=== PATIENT | female | born 1950 | race Caucasian/White ===

== ENCOUNTER → 2020-02-23 10:35 | Outpatient (CLI) | payer OTHER, SELFPAY ==
[2020-02-23 11:24] LABS: Add Manual Diff / Slide Review NO; Basophils Absolute Auto 100 /uL (0-100); Basophils Percent Auto 1.3 % (0-2); Eosinophils Absolute Auto 100 /uL (0-450); Eosinophils Percent Auto 1.7 % (2-4); Hematocrit 43.2 % (36-46); Hemoglobin 14.7 g/dL (12.0-16.0); Lymphocytes Absolute Auto 1000 /uL (1100-4500); Lymphocytes Percent Auto 22.5 % (25-40); Mean Corpuscular HGB Conc 34.1 % (30-36); Mean Corpuscular Hemoglobin 30.6 PG (26-34); Mean Corpuscular Volume 89.6 fL (80-100); Monocytes Absolute Auto 300 /uL (0-900); Monocytes Percent Auto 6.8 % (3-14); Neutrophils Absolute Auto 2900 /uL (1500-7000); Neutrophils Percent Auto 67.7 % (50-75); Platelet Count 179 X10^3/uL (150-400); Red Blood Cell Count 4.82 X10^6/uL (4.0-5.2); Red Cell Distribution Width 14.1 % (11.6-14.8); White Blood Cell Count 4.2 X10^3/uL (4.5-11.0)
[2020-02-23 12:38] LABS: Alanine Aminotransferase 61 IU/L (<35); Albumin 4.2 g/dL (3.5-5.0); Albumin Globulin Ratio 1.4 (1.0-2.8); Alkaline Phosphatase 116 U/L (38-126); Aspartate Aminotransferase 68 IU/L (14-36); BUN Creatinine Ratio 17.9 (6-22); Blood Urea Nitrogen 17 mg/dL (7-17); Calcium 9.8 mg/dL (8.4-10.2); Carbon Dioxide 25 mmol/L (22-32); Chloride 105 mmol/L (98-107); Estimated Glomerular Filt Rate 58.3 mL/min (>60); Globulin 2.9 g/dL (1.7-4.1); Glucose 108 mg/dL (80-110); HEMOLYSIS < 15 (0-50); Potassium 3.8 mmol/L (3.4-5.1); Sodium 137 mmol/L (137-145); Total Protein 7.1 g/dL (6.3-8.2)
== END ==
PROVIDERS: Referring Provider Internal Medicine Medical Oncology; Visit Provider Internal Medicine Medical Oncology
DX: C22.9 Malignant neoplasm of liver, not specified as primary or secondary (principal)
CPT/HCPCS: 36415; 80053; 82105; 85025

== ENCOUNTER 2020-03-31 16:39 | Emergency (ER) | payer OTHER, SELFPAY ==
[2020-03-31] VITALS (12 sets, daily range): BP systolic 123–151; BP diastolic 68–90; PULSE 53–71; RESP 15–22; TEMP 36.7; O2SAT 96–100
[2020-03-31 17:18] LABS: Add Manual Diff / Slide Review NO; Basophils Absolute Auto 0 /uL (0-100); Basophils Percent Auto 0.6 % (0-2); Eosinophils Absolute Auto 0 /uL (0-450); Eosinophils Percent Auto 0.6 % (2-4); Hematocrit 47.8 % (36-46); Hemoglobin 16.5 g/dL (12.0-16.0); Lymphocytes Absolute Auto 1000 /uL (1100-4500); Lymphocytes Percent Auto 13.3 % (25-40); Mean Corpuscular HGB Conc 34.4 % (30-36); Mean Corpuscular Hemoglobin 30.4 PG (26-34); Mean Corpuscular Volume 88.3 fL (80-100); Monocytes Absolute Auto 400 /uL (0-900); Monocytes Percent Auto 4.9 % (3-14); Neutrophils Absolute Auto 6200 /uL (1500-7000); Neutrophils Percent Auto 80.6 % (50-75); Platelet Count 186 X10^3/uL (150-400); Red Blood Cell Count 5.42 X10^6/uL (4.0-5.2); Red Cell Distribution Width 14.2 % (11.6-14.8); White Blood Cell Count 7.7 X10^3/uL (4.5-11.0)
[2020-03-31 17:20] LABS: INR 2.2 (0.9-1.3); Prothrombin Time 25.1 SECONDS (10.1-12.7)
[2020-03-31 17:23] LABS: PTT Partial Thromboplastin Tim 43 SECONDS (26.4-36.2)
[2020-03-31 17:25] LABS: Alanine Aminotransferase 60 IU/L (<35); Albumin 4.8 g/dL (3.5-5.0); Albumin Globulin Ratio 1.3 (1.0-2.8); Alkaline Phosphatase 153 U/L (38-126); Aspartate Aminotransferase 76 IU/L (14-36); Bilirubin Total 1.5 mg/dL (0.2-1.3); Blood Urea Nitrogen 19 mg/dL (7-17); Calcium 10.1 mg/dL (8.4-10.2); Carbon Dioxide 24 mmol/L (22-32); Chloride 102 mmol/L (98-107); Globulin 3.6 g/dL (1.7-4.1); Glucose 95 mg/dL (80-110); HEMOLYSIS < 15 (0-50); Lipase 71 U/L (23-300); Potassium 3.7 mmol/L (3.4-5.1); Sodium 136 mmol/L (137-145); Total Protein 8.4 g/dL (6.3-8.2)
[2020-03-31 17:30] LABS: COVID19 -Nasal RAPID Negative (Negative)
--- NOTE | 2020-03-31 17:38 | DI.RAD.S_ITS ---
PROCEDURE: XR CHEST 1V INDICATIONS: sob, vomiting TECHNIQUE: One view of the chest was acquired. COMPARISON: None. FINDINGS: Overlying EKG wires. Surgical changes and devices: Right chest wall port catheter is noted with the tip overlying the expected location of the superior cavoatrial junction. Lungs and pleura: Lungs are clear. No pleural effusions or pneumothorax. Very small calcification overlying the right mid lung likely representing granuloma. Mediastinum: Mediastinal contours appear normal. Heart size is normal. Bones and chest wall: No suspicious bony lesions. Age appropriate degenerative changes. Overlying soft tissues appear unremarkable. IMPRESSION: No evidence of an acute cardiopulmonary abnormality. Dictated by: Vinny Spivey D.O. on 03/31/2020 at 17:03 Approved by: Vinny Spivey D.O. on 03/31/2020 at 17:04
[2020-03-31 17:53] LABS: Creatine Kinase 42 U/L (30-135)
[2020-03-31 18:06] LABS: NT-proBNP (BNP-Adult 18+) 67 pg/mL (<125); Troponin I < 0.012 ng/mL (0.01-0.034)
--- NOTE | 2020-03-31 18:42 | ED.NAVMDI ---
HPI - Nausea/Vomiting/Diarrhea General Chief complaint: Nausea/Vomiting/Diarrhea Stated complaint: Just Been Sick, Body Aches, Throwing Up, SOB Time Seen by Provider: 03/31/20 17:37 Source: patient Mode of arrival: Ambulatory History of Present Illness HPI Narrative: Patient is a 69-year-old woman with primary liver cancer followed by Dr. Bridget Squires with the [facility] [place]. She currently is on an oral chemotherapeutic agent with a goal of stability and currently is enrolled in a T-cell treatment trial and anticipation of infusing T-cells at the end of April. She comes into the emergency room complaining of chills for the last 24 hours, fevers, mild dyspnea and generally not feeling well. She states this is exactly the symptoms that she had when her initial cancer was diagnosed. She notes that she has very little appetite, vomiting, diarrhea (which is alleviated with Imodium) and has lost almost 8 lb in the last week. She describes no cough no specific abdominal pain but does have some generalized tenderness in the right upper quadrant, no rashes, low-grade headaches and mild orthostasis type symptoms after the recent increase in vomiting and diarrhea. She has noticed no jaundice and is complaining of no overall puritis. No lower extremity edema, chest pain or palpitations or orthopnea. Review of Systems Review of Systems ROS Unobtainable: All systems reviewed & are unremarkable except as noted in HPI and below Patient History Medical History (Updated 03/31/20 @ 22:14 by Peggy Jackson MD) Primary liver malignancy Surgical History (Updated 03/31/20 @ 20:01 by Peggy Jacksno MD) History of cholecystectomy Exam Narrative Exam Narrative: General: Pale and frail appearing but in no acute distress. Able to give a complete and coherent history. Well-nourished well-developed HEENT: Moist mucous membranes, normal sclera with reactive pupils, Neck: No JVD, supple Respiratory: Lungs are clear to auscultation, no wheezing no rales no rhonchi. Full and symmetrical air movement Cardiac: Regular rate and rhythm no murmurs no bruits Abdomen: Soft, mild RUQ tenderness with mild hepatomegaly, good bowel tones, no flank pain Skin: pale, Warm and dry, no rashes Neurologic: Grossly neurologically intact with no obvious asymmetries or abnormalities Extremities: No trauma, well perfused Psych: Cooperative, appropriate insight and affect Initial Vital Signs Initial Vital Signs: Vital Signs Temperature 98.1 F 03/31/20 16:48 Pulse Rate 69 03/31/20 16:48 Respiratory Rate 22 03/31/20 16:48 Blood Pressure 137/90 03/31/20 16:48 Pulse Oximetry 97 03/31/20 16:48 Course Orders Ordered: ED Orders 03/31/20 16:49 EKG-12 Lead Stat 03/31/20 16:50 COVID19 Stat 03/31/20 17:05 Complete Blood Count AUTO DIFF Stat Comprehensive Metabolic Panel Stat Lipase Stat NT-proBNP (BNP-Adult 18+) Stat Partial Thromboplastin Time Stat Prothrombin Time INR Stat Troponin & CK Cardiac Panel Stat 03/31/20 17:38 XR chest 1V Stat 03/31/20 21:11 Urine Culture Stat Urine Microscopic Stat 03/31/20 22:05 GI Panel (Film Array) Stat Discontinued Medications Sodium Chloride (Normal Saline 0.9%) 1,000 mls @ 1,000 mls/hr IV BOLUS ONE Stop: 03/31/20 19:43 Last Infusion: 03/31/20 20:43 Dose: 0 mls/hr Documented by: Admin: 03/31/20 18:52 Dose: 1,000 mls/hr Documented by: LUCIE Sodium Chloride (Normal Saline 0.9%) 1,000 mls @ 1,000 mls/hr IV BOLUS ONE Stop: 03/31/20 21:23 Last Infusion: 03/31/20 21:42 Dose: 0 mls/hr Documented by: Admin: 03/31/20 20:35 Dose: 1,000 mls/hr Documented by: CIRA Loperamide HCl (Loperamide 2 Mg Capsule) 4 mg PO NOW ONE Stop: 03/31/20 21:44 Last Admin: 03/31/20 21:47 Dose: 4 mg Documented by: OMARI Vital Signs Vital signs: Vital Signs - 8 hr 03/31/20 16:48 03/31/20 17:16 03/31/20 17:30 Temperature 98.1 F Pulse Rate 69 57 L 54 L Respiratory Rate 22 15 Blood Pressure 137/90 140/78 Pulse Oximetry 97 97 96 03/31/20 18:00 03/31/20 18:30 03/31/20 19:00 Temperature Pulse Rate 54 L 58 L 58 L Respiratory Rate 22 18 19 Blood Pressure 144/76 H 123/73 140/78 Pulse Oximetry 97 97 97 03/31/20 19:30 03/31/20 20:00 03/31/20 20:30 Temperature Pulse Rate 53 L 53 L 54 L Respiratory Rate 20 18 22 Blood Pressure 147/76 H 132/75 140/76 Pulse Oximetry 98 98 99 03/31/20 21:12 Temperature Pulse Rate 56 L Respiratory Rate 16 Blood Pressure 148/69 H Pulse Oximetry 96 MDM - Nausea/Vomiting/Diarrhea Medical Records Attestation: I reviewed the patient's medical records. Lab Data Attestation: I reviewed the patient's lab results. Result diagrams: 03/31/20 17:05 03/31/20 17:05 Labs: Lab Results 03/31/20 03/31/20 03/31/20 Range/Units 16:50 17:05 17:05 WBC 7.7 (4.5-11.0) X10^3/uL RBC 5.42 H (4.0-5.2) X10^6/uL Hgb 16.5 H (12.0-16.0) g/dL Hct 47.8 H (36-46) % MCV 88.3 (80-100) fL MCH 30.4 (26-34) PG MCHC 34.4 (30-36) % RDW 14.2 (11.6-14.8) % Plt Count 186 (150-400) X10^3/uL Neut % (Auto) 80.6 H (50-75) % Lymph % (Auto) 13.3 L (25-40) % [place] % (Auto) 4.9 (3-14) % Eos % (Auto) 0.6 L (2-4) % Baso % (Auto) 0.6 (0-2) % Neut # (Auto) 6200 (3780-5270) /uL Lymph # (Auto) 1000 L (8384-3876) /uL [place] # (Auto) 400 (0-900) /uL Eos # (Auto) 0 (0-450) /uL Baso # (Auto) 0 (0-100) /uL PT 25.1 H (10.1-12.7) SECONDS INR 2.2 H (0.9-1.3) APTT 43 H (26.4-36.2) SECONDS Sodium (137-145) mmol/L Potassium (3.4-5.1) mmol/L Chloride (98-107) mmol/L Carbon Dioxide (22-32) mmol/L BUN (7-17) mg/dL Creatinine (0.52-1.04) mg/dL Estimated GFR (>60) mL/min BUN/Creatinine Ratio (6-22) Glucose (80-110) mg/dL Calcium (8.4-10.2) mg/dL Total Bilirubin (0.2-1.3) mg/dL AST (14-36) IU/L ALT (<35) IU/L Alkaline Phosphatase (38-126) U/L Total Creatine Kinase (30-135) U/L CK-MB (CK-2) CK-MB (CK-2) Rel Index Troponin I (0.01-0.034) ng/mL NT-Pro-B Natriuret Pep (<125) pg/mL Total Protein (6.3-8.2) g/dL Albumin (3.5-5.0) g/dL Globulin (1.7-4.1) g/dL Albumin/Globulin Ratio (1.0-2.8) Lipase (23-300) U/L Urine RBC (0-5/HPF) Urine WBC (0-5/HPF) Ur Squamous Epith Cells (0-5/HPF) Urine Bacteria (None) Hyaline Casts (None) Urine Mucus (Negative) Ur Culture Indicated? SARS-CoV-2 (PCR) Negative (Negative) 03/31/20 03/31/20 03/31/20 Range/Units 17:05 17:05 21:11 WBC (4.5-11.0) X10^3/uL RBC (4.0-5.2) X10^6/uL Hgb (12.0-16.0) g/dL Hct (36-46) % MCV (80-100) fL MCH (26-34) PG MCHC (30-36) % RDW (11.6-14.8) % Plt Count (150-400) X10^3/uL Neut % (Auto) (50-75) % Lymph % (Auto) (25-40) % [place] % (Auto) (3-14) % Eos % (Auto) (2-4) % Baso % (Auto) (0-2) % Neut # (Auto) (5985-1391) /uL Lymph # (Auto) (2015-5642) /uL [place] # (Auto) (0-900) /uL Eos # (Auto) (0-450) /uL Baso # (Auto) (0-100) /uL PT (10.1-12.7) SECONDS INR (0.9-1.3) APTT (26.4-36.2) SECONDS Sodium 136 L (137-145) mmol/L Potassium 3.7 (3.4-5.1) mmol/L Chloride 102 (98-107) mmol/L Carbon Dioxide 24 (22-32) mmol/L BUN 19 H (7-17) mg/dL Creatinine 1.19 H (0.52-1.04) mg/dL Estimated GFR 45.0 L (>60) mL/min BUN/Creatinine Ratio 16.0 (6-22) Glucose 95 (80-110) mg/dL Calcium 10.1 (8.4-10.2) mg/dL Total Bilirubin 1.5 H (0.2-1.3) mg/dL AST 76 H (14-36) IU/L ALT 60 H (<35) IU/L Alkaline Phosphatase 153 H (38-126) U/L Total Creatine Kinase 42 (30-135) U/L CK-MB (CK-2) TNP CK-MB (CK-2) Rel Index TNP Troponin I < 0.012 (0.01-0.034) ng/mL NT-Pro-B Natriuret Pep 67 (<125) pg/mL Total Protein 8.4 H (6.3-8.2) g/dL Albumin 4.8 (3.5-5.0) g/dL Globulin 3.6 (1.7-4.1) g/dL Albumin/Globulin Ratio 1.3 (1.0-2.8) Lipase 71 (23-300) U/L Urine RBC 0-1/hpf (0-5/HPF) Urine WBC 1-5/hpf (0-5/HPF) Ur Squamous Epith Cells 1-5 /hpf (0-5/HPF) Urine Bacteria Many (>30) H (None) Hyaline Casts 1-5/lpf (None) Urine Mucus 1+ H (Negative) Ur Culture Indicated? Specimen cultured SARS-CoV-2 (PCR) (Negative) Urine Dip Bedside Urine Glucose Negative Bedside Urine Bilirubin - Negative Bedside Urine Ketone +/- 5 Urine Specific [place] 1.025 Bedside Urine Occult Blood +/- Bedside Urine pH 6 Bedside Urine Protein - Negative Bedside Urine Urobilinogen - Negative Bedside Urine Nitrite - Negative Bedside Urine Leukocytes + 70 Esterase Imaging Data Chest x-ray: Radiologist's Impression: FINDINGS: Overlying EKG wires. Surgical changes and devices: Right chest wall port catheter is noted with the tip overlying the expected location of the superior cavoatrial junction. Lungs and pleura: Lungs are clear. No pleural effusions or pneumothorax. Very small calcification overlying the right mid lung likely representing granuloma. Mediastinum: Mediastinal contours appear normal. Heart size is normal. Bones and chest wall: No suspicious bony lesions. Age appropriate degenerative changes. Overlying soft tissues appear unremarkable. IMPRESSION: No evidence of an acute cardiopulmonary abnormality. Dictated by: Vinny Spivey D.O. on 03/31/2020 at 17:03 ECG Data Attestation: I personally reviewed and interpreted this ECG as follows: Interpretation: Sinus rhythm at a rate of 56 Normal intervals, leftward axis nonspecific ST T wave changes without acute ischemia No immediate comparison is available MDM Narrative Medical decision making narrative: Case is reviewed with Dr. Casillas, position covering for Dr. Squires with [facility]. Review findings and concerns. She did look at the results of the CT scan from March 28. There is a slight increase in peritoneal disease in the right paracolic gutter but many of the other liver lesions actually looks likely continue to decrease from scans compared back to July. Given the absence of obvious infection or sepsis and mild dehydration recommendation was to treat the dehydration make sure that she was able to tolerate orals and anticipate discharge home with known follow-up already scheduled with her primary oncologist. We briefly reviewed the slight increase to total bilirubin/AST/ALT/alkaline phosphatase and in light of imaging done 3 days ago it was not felt that additional imaging was required at this time. She has had her gallbladder removed. There is no evidence of ascending cholangitis or pancreatitis. 10pm feeling slightly better after 2 L of fluid and now needing to void. Continuing to have rather prolific diarrhea. She is given 4 mg of Imodium. Stool GI panel is sent. I suspect that the diarrhea is more related to her chemotherapy medicine rather than infectious etiology but certainly and easy thing to confirm. Discussed home verses observation admission with patient and her daughter. At this point she feels that the diarrhea can be controlled, she is able to eat and she would much prefer to go home. She will contact her oncologist tomorrow and has not taken her oncology medicine this evening. Discharge Plan Departure Patient Disposition: Home Clinical Impression: Primary liver malignancy, Dehydration, Vomiting and diarrhea Instructions: DI for Dehydration -- Adult Activity Restrictions/Additional Instructions: Thank you for coming in today You received 2 L of IV fluid. You were slightly dehydrated but there is no evidence of acute infection. After looking through all of the side effects of your cancer medication, it likely is the source of the severe diarrhea you are currently experiencing. Please continue using the Zofran you have at home if you have recurrent nausea. It is okay to use Imodium to help control the diarrhea. Please do not take the cancer medication this evening and you contact your oncologist tomorrow to see what she recommends for further dosing. If there are any abnormalities that come back on the stool study that was sent, we will contact you and help with appropriate treatment. I wish you the best Referrals: Gabbi Azevedo PA-C [Primary Care Provider] -
[2020-03-31] MEDS: SODIUM CHLORIDE 0.9% 1,000 ML 1000 ML IV ×2 (18:52→20:35)
[2020-03-31 21:28] LABS: Bacteria Urine Many (>30); Hyaline Casts Urine 1-5/LPF; RBC Urine 0-1/HPF (0-5/HPF); Squamous Epithelial Cell Urine 1-5 /HPF (0-5/HPF); WBC Urine 1-5/HPF (0-5/HPF)
[2020-03-31 21:30] LABS: Culture Indicated Urine Specimen Cultured; Mucus Urine 1+ (Negative)
[2020-03-31] MEDS: LOPERAMIDE 2 MG CAPSULE 4 MG PO (21:47)
[2020-03-31 23:50] LABS: Adenovirus F 40/41 Not Detected (Not Detect); Astrovirus Not Detected (Not Detect); Campylobacter Not Detected (Not Detect); Clostridium difficile toxin AB Not Detected (Not Detect); Cryptosporidium Not Detected (Not Detect); Cyclospora cayetanensis Not Detected (Not Detect); Entamoeba histolytica Not Detected (Not Detect); Enteroaggregative E.coli Not Detected (Not Detect); Enteropathogenic E.coli Not Detected (Not Detect); Enterotoxigenic E.coli It/st Not Detected (Not Detect); Giardia lamblia Not Detected (Not Detect); Norovirus GI/GII Not Detected (Not Detect); Plesiomonsa shigelloides Not Detected (Not Detect); Rotavirus A Not Detected (Not Detect); Salmonella Not Detected (Not Detect); Sapovirus Not Detected (Not Detect); Shiga-like toxin-prod E.coli Not Detected (Not Detect); Shigella/Enteroinvasive E.coli Not Detected (Not Detect); Vibrio Not Detected (Not Detect); Vibrio cholerae Not Detected (Not Detect); Yersinia enterocolitica Not Detected (Not Detect)
== END 2020-03-31 22:26 | disposition home or self-care (01) ==
PROVIDERS: Emergency Medicine; Emergency Provider Emergency Medicine; PCP Physician Assistant Medical
DX: C22.8 Malignant neoplasm of liver, primary, unspecified as to type (principal); E86.0 Dehydration; R11.0 Nausea; R19.7 Diarrhea, unspecified; R10.9 Unspecified abdominal pain; R06.00 Dyspnea, unspecified; Z20.822 Contact with and (suspected) exposure to COVID-19
CPT/HCPCS: 36415; 71045; 80053; 81003; 81015; 82550; 83690; 83880; 84484; 85025; 85610; 85730; 87077; 87086; 87186; 87507; 87635; 93005; 96360; 96361; 99281; 99284; C9803; J1642

== ENCOUNTER 2020-05-02 20:30 | Emergency (ER) | payer OTHER, SELFPAY ==
[2020-05-02] VITALS (9 sets, daily range): BP systolic 98–137; BP diastolic 55–66; PULSE 73–749; RESP 21–26; TEMP 37.6; O2SAT 96–98; BMI 24.1
[2020-05-02] MEDS: SODIUM CHLORIDE 0.9% 1,000 ML 125 ML IV (20:52)
[2020-05-02 21:13] LABS: Add Manual Diff / Slide Review NO; Basophils Absolute Auto 0 /uL (0-100); Basophils Percent Auto 0.5 % (0-2); Eosinophils Absolute Auto 0 /uL (0-450); Eosinophils Percent Auto 0.1 % (2-4); Hematocrit 31.2 % (36-46); Hemoglobin 10.3 g/dL (12.0-16.0); Lymphocytes Absolute Auto 800 /uL (1100-4500); Lymphocytes Percent Auto 8.2 % (25-40); Mean Corpuscular HGB Conc 33.2 % (30-36); Mean Corpuscular Hemoglobin 30.4 PG (26-34); Mean Corpuscular Volume 91.5 fL (80-100); Monocytes Absolute Auto 1000 /uL (0-900); Monocytes Percent Auto 10.5 % (3-14); Neutrophils Absolute Auto 7700 /uL (1500-7000); Neutrophils Percent Auto 80.7 % (50-75); Platelet Count 206 X10^3/uL (150-400); Red Blood Cell Count 3.41 X10^6/uL (4.0-5.2); Red Cell Distribution Width 13.6 % (11.6-14.8); White Blood Cell Count 9.5 X10^3/uL (4.5-11.0)
[2020-05-02 21:18] LABS: INR 1.7 (0.9-1.3)
[2020-05-02 21:23] LABS: Alanine Aminotransferase 170 IU/L (<35); Albumin 3.4 g/dL (3.5-5.0); Albumin Globulin Ratio 1.1 (1.0-2.8); Alkaline Phosphatase 274 U/L (38-126); Aspartate Aminotransferase 251 IU/L (14-36); BUN Creatinine Ratio 14.6 (6-22); Bilirubin Total 0.9 mg/dL (0.2-1.3); Blood Urea Nitrogen 19 mg/dL (7-17); Calcium 9.4 mg/dL (8.4-10.2); Carbon Dioxide 25 mmol/L (22-32); Chloride 100 mmol/L (98-107); Estimated Glomerular Filt Rate 40.6 mL/min (>60); Globulin 3.1 g/dL (1.7-4.1); Glucose 124 mg/dL (80-110); HEMOLYSIS < 15 (0-50); Lactate (Lactic Acid) 0.8 mmol/L (0.7-2.1); Lipase 70 U/L (23-300); Magnesium 1.7 mg/dL (1.6-2.3); Potassium 3.7 mmol/L (3.4-5.1); Sodium 130 mmol/L (137-145); Total Protein 6.5 g/dL (6.3-8.2)
[2020-05-02] MEDS: SODIUM CHLORIDE 0.9% 1,000 ML 1000 ML IV (21:46)
--- NOTE | 2020-05-02 21:48 | DI.RAD.S_ITS ---
PROCEDURE: XR CHEST 2V INDICATIONS: fever TECHNIQUE: 2 views of the chest were acquired. COMPARISON: [facility], , XR CHEST 1V, 03/31/2020, 17:49. FINDINGS: Surgical changes and devices: Right chest port with the tip projecting in the upper SVC. Lungs and pleura: Lungs are clear. No pleural effusions or pneumothorax. Mediastinum: Mediastinal contours are normal. Heart size is normal. Bones and chest wall: No suspicious bony abnormalities. Soft tissues appear unremarkable. IMPRESSION: No acute disease. Dictated by: Vinicio Squires M.D. on 05/02/2020 at 22:15 Approved by: Vinicio Squires M.D. on 05/02/2020 at 22:16
--- NOTE | 2020-05-02 22:04 | ED.FEVER ---
HPI - Fever General Chief Complaint: Fever Stated Complaint: fever, BP issues, cancer pt Time Seen by Provider: 05/02/20 20:36 Source: patient Mode of arrival: Ambulatory Limitations: no limitations History of Present Illness HPI Narrative: 69-year-old female nonsmoker with history of liver cancer presents with family in the chief complaint of a fever today as high as 102 in the absence of any specific symptoms other than some dark urine and urgency. She denies any headache or blurred vision. She has no runny nose, sneezing or sore throat. She denies any chest pain, shortness of breath or cough. She denies any worsening abdominal pain. She has had no change in her bowel habits such as constipation or diarrhea. Her last chemotherapy was nearly 1 month ago as she has an upcoming (hopeful) entrance into a T-cell study at the [facility]. She was just down there yesterday and had significant workup including labs and imaging including head, chest abdomen and pelvis. She had been having issues with lower blood pressures, sometimes in the 80s and 90s without dizziness or lightheadedness. Yesterday she had her blood pressure medications decreased and today would have been the 1st day that she employed this new method. complaint: fever Onset (ago): hour(s) Temperature Source: oral Associated symptoms: denies other symptoms Relieving factors: nothing Exacerbating factors: nothing Related Data Previous Rx's Medication Instructions Recorded cephalexin [Keflex] 500 mg PO BID #14 cap 05/03/20 Allergies Allergy/AdvReac Type Severity Reaction Status Date / Time codeine Allergy Verified 05/02/20 20:45 Sulfa (Sulfonamide Allergy Verified 05/02/20 20:45 Antibiotics) Review of Systems Constitutional Constitutional: Denies chills, Denies fatigue, Reports fever(s), Denies frequent falls, Denies lethargy and Denies weakness Eyes Eyes: Denies change in vision, Denies eye discharge, Denies irritation and Denies loss of vision ENT Ears, Nose, Mouth, and Throat: Denies change in voice, Denies dizziness, Denies neck pain, Denies sore throat and Denies throat swelling Cardiovascular Cardiovascular: Denies chest pain, Denies irregular heart rhythm, Denies lightheadedness, Denies palpitations, Denies dyspnea, Denies dyspnea on exertion and Denies orthopnea Respiratory Respiratory: Denies cough, Denies dyspnea, Denies dyspnea on exertion and Denies wheezing Gastrointestinal Gastrointestinal: Denies abdominal pain, Denies change in bowel habits, Denies diarrhea, Denies nausea and Denies vomiting Genitourinary Genitourinary: Reports urinary urgency Genitourinary: Reports urinary urgency Musculoskeletal Musculoskeletal: Denies neck pain and Denies numbness Integumentary/Breasts Skin/Breast: Denies pruritus, Denies erythema, Denies rash and Denies wounds Neurologic Neurologic: Denies behavioral changes, Denies confusion, Denies dizziness, Denies frequent falls, Denies loss of vision, Denies numbness and Denies weakness Psychiatric Psychiatric: Denies anxiety, Denies behavioral changes, Denies confusion, Denies depression, Denies homicidal ideation and Denies suicidal ideation Endocrine Endocrine: Denies fatigue, Denies flushing and Denies palpitations Hematologic/Lymphatic Hematologic/Lymphatic: Denies easy bruising Allergic/Immunologic Allergic/Immunologic: Denies urticaria, Denies throat swelling and Denies wheezing Patient History Medical History Primary liver malignancy Surgical History History of cholecystectomy Social History Smoking Status: Unknown if ever smoked Smoking Status: Unknown if ever smoked alcohol intake frequency: holidays/special occasions only Substance Use Type: does not use Exam Narrative Exam Narrative: GENERAL: [69] year old patient appears stated age. Well-nourished, well-developed patient, in mild distress. HEAD: Atraumatic. Normocephalic. EYES: Pupils equal round and reactive. Extraocular motions intact. No scleral icterus. No injection or drainage. ENT: Nose without bleeding, purulent drainage. Throat without erythema, tonsillar hypertrophy or exudate. Airway patent. NECK: Trachea midline. Non tender CARDIOVASCULAR: Regular rate and rhythm without murmurs, gallops, or rubs. RESPIRATORY: Clear to auscultation. Breath sounds equal bilaterally. No wheezes, rales, or rhonchi. GASTROINTESTINAL: Abdomen soft, non-tender, nondistended. EXTREMITIES: No edema or joint tenderness. BACK: Nontender without deformity or crepitance. No flank tenderness. NEURO: AOx3. SKIN: No rash or erythema of visible areas Initial Vital Signs Initial Vital Signs: Vital Signs Temperature 99.7 F H 05/02/20 20:35 Pulse Rate 749 H 05/02/20 20:35 Respiratory Rate 21 05/02/20 20:35 Blood Pressure 117/66 05/02/20 20:35 Pulse Oximetry 96 05/02/20 20:35 Course Orders Ordered: ED Orders 05/02/20 20:45 Complete Blood Count AUTO DIFF Stat Comprehensive Metabolic Panel Stat Lactate (Lactic Acid) Stat Lipase Stat Magnesium Stat Prothrombin Time INR Stat 05/02/20 21:17 Blood Culture Stat 05/02/20 21:48 XR chest 2V Stat 05/02/20 22:14 Urine Culture Stat Urine Microscopic Stat Sodium Chloride (Normal Saline 0.9%) 1,000 mls @ 125 mls/hr IV CONT GAGE Last Infusion: 05/03/20 00:06 Dose: 0 mls/hr Documented by: Infusion: 05/02/20 23:10 Dose: 125 mls/hr Documented by: Infusion: 05/02/20 21:46 Dose: 0 mls/hr Documented by: Admin: 05/02/20 20:52 Dose: 125 mls/hr Documented by: MACOTEM Discontinued Medications Cefazolin Sodium (Cephalexin 250 Mg Prepack) 1 bottle MISC SEEINSTR ONE Stop: 05/03/20 00:48 Sodium Chloride (Normal Saline 0.9%) 1,000 mls @ 1,000 mls/hr IV BOLUS ONE Stop: 05/02/20 22:31 Last Infusion: 05/02/20 23:10 Dose: 0 mls/hr Documented by: Admin: 05/02/20 21:46 Dose: 1,000 mls/hr Documented by: SCOTT Consultations Consultation #1: 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 Discussed case and she is in agreement with plan to treat UTI with michael Cabrales DC. Requests patient contact [facility] Clinic in the morning. Vital Signs Vital signs: Vital Signs - 8 hr 05/02/20 20:35 05/02/20 20:38 05/02/20 21:00 Temperature 99.7 F H Pulse Rate 749 H 82 74 Respiratory Rate 21 21 26 H Blood Pressure 117/66 117/60 98/56 L Pulse Oximetry 96 97 96 05/02/20 21:30 05/02/20 22:05 05/02/20 22:06 Temperature Pulse Rate 74 81 80 Respiratory Rate 24 22 23 Blood Pressure 100/57 L 137/64 Pulse Oximetry 96 98 05/02/20 22:30 05/02/20 23:00 05/02/20 23:30 Temperature Pulse Rate 75 73 74 Respiratory Rate 23 22 22 Blood Pressure 104/57 L 99/56 L 105/55 L Pulse Oximetry 96 96 96 05/03/20 00:00 05/03/20 00:07 05/03/20 00:30 Temperature 99.7 F H Pulse Rate 70 74 74 Respiratory Rate 20 21 21 Blood Pressure 95/54 L 102/58 L 112/57 L Pulse Oximetry 95 96 96 MDM - Fever Lab Data Result diagrams: 05/02/20 20:45 05/02/20 20:45 Labs: Lab Results 05/02/20 05/02/20 05/02/20 Range/Units 20:45 20:45 20:45 WBC 9.5 (4.5-11.0) X10^3/uL RBC 3.41 L (4.0-5.2) X10^6/uL Hgb 10.3 L (12.0-16.0) g/dL Hct 31.2 L (36-46) % MCV 91.5 (80-100) fL MCH 30.4 (26-34) PG MCHC 33.2 (30-36) % RDW 13.6 (11.6-14.8) % Plt Count 206 (150-400) X10^3/uL Neut % (Auto) 80.7 H (50-75) % Lymph % (Auto) 8.2 L (25-40) % Floyd % (Auto) 10.5 (3-14) % Eos % (Auto) 0.1 L (2-4) % Baso % (Auto) 0.5 (0-2) % Neut # (Auto) 7700 H (8865-2138) /uL Lymph # (Auto) 800 L (5435-5388) /uL Floyd # (Auto) 1000 H (0-900) /uL Eos # (Auto) 0 (0-450) /uL Baso # (Auto) 0 (0-100) /uL PT 19.0 H (10.1-12.7) SECONDS INR 1.7 H (0.9-1.3) Sodium 130 L (137-145) mmol/L Potassium 3.7 (3.4-5.1) mmol/L Chloride 100 (98-107) mmol/L Carbon Dioxide 25 (22-32) mmol/L BUN 19 H (7-17) mg/dL Creatinine 1.30 H (0.52-1.04) mg/dL Estimated GFR 40.6 L (>60) mL/min BUN/Creatinine Ratio 14.6 (6-22) Glucose 124 H (80-110) mg/dL Lactate (0.7-2.1) mmol/L Calcium 9.4 (8.4-10.2) mg/dL Magnesium 1.7 (1.6-2.3) mg/dL Total Bilirubin 0.9 (0.2-1.3) mg/dL AST 251 H (14-36) IU/L ALT 170 H (<35) IU/L Alkaline Phosphatase 274 H (38-126) U/L Total Protein 6.5 (6.3-8.2) g/dL Albumin 3.4 L (3.5-5.0) g/dL Globulin 3.1 (1.7-4.1) g/dL Albumin/Globulin Ratio 1.1 (1.0-2.8) Lipase 70 (23-300) U/L Urine RBC (0-5/HPF) Urine WBC (0-5/HPF) Ur Squamous Epith Cells (0-5/HPF) Urine Bacteria (None) Hyaline Casts (None) Ur Culture Indicated? 05/02/20 05/02/20 Range/Units 20:45 22:14 WBC (4.5-11.0) X10^3/uL RBC (4.0-5.2) X10^6/uL Hgb (12.0-16.0) g/dL Hct (36-46) % MCV (80-100) fL MCH (26-34) PG MCHC (30-36) % RDW (11.6-14.8) % Plt Count (150-400) X10^3/uL Neut % (Auto) (50-75) % Lymph % (Auto) (25-40) % Floyd % (Auto) (3-14) % Eos % (Auto) (2-4) % Baso % (Auto) (0-2) % Neut # (Auto) (3667-3787) /uL Lymph # (Auto) (3604-2500) /uL Floyd # (Auto) (0-900) /uL Eos # (Auto) (0-450) /uL Baso # (Auto) (0-100) /uL PT (10.1-12.7) SECONDS INR (0.9-1.3) Sodium (137-145) mmol/L Potassium (3.4-5.1) mmol/L Chloride (98-107) mmol/L Carbon Dioxide (22-32) mmol/L BUN (7-17) mg/dL Creatinine (0.52-1.04) mg/dL Estimated GFR (>60) mL/min BUN/Creatinine Ratio (6-22) Glucose (80-110) mg/dL Lactate 0.8 (0.7-2.1) mmol/L Calcium (8.4-10.2) mg/dL Magnesium (1.6-2.3) mg/dL Total Bilirubin (0.2-1.3) mg/dL AST (14-36) IU/L ALT (<35) IU/L Alkaline Phosphatase (38-126) U/L Total Protein (6.3-8.2) g/dL Albumin (3.5-5.0) g/dL Globulin (1.7-4.1) g/dL Albumin/Globulin Ratio (1.0-2.8) Lipase (23-300) U/L Urine RBC None seen (0-5/HPF) Urine WBC 5-10/hpf H (0-5/HPF) Ur Squamous Epith Cells 0-1 /hpf (0-5/HPF) Urine Bacteria Few (2-10) H (None) Hyaline Casts 1-5/lpf (None) Ur Culture Indicated? Specimen cultured Urine Dip Bedside Urine Glucose Negative Bedside Urine Bilirubin - Negative Bedside Urine Ketone - Negative Urine Specific [place] 1.015 Bedside Urine Occult Blood - Negative Bedside Urine pH 6.0 Bedside Urine Protein + 30 Bedside Urine Urobilinogen - Negative Bedside Urine Nitrite - Negative Bedside Urine Leukocytes + 70 Esterase Imaging Data Chest x-ray: Radiologist's Impression: 32 Migueltio Hdz, Find Patient Imaging - Adri Chadwick L 69 F 1950 ACTIVITY DATE EXAM STATUS AUTHOR 05/02/20 21:48 Signed Vinicio Squires [address] [id number] ReportSigned Patient: Adri Chadwick LMR#: [id number]: [id number]:[id number]/Sex: 69 / FDate of Service: 05/02/20Loc: EDAccession Number: [id number] Procedure: XR chest 2V Ordering Provider: Miguelito Hdz D.O. PROCEDURE: XR CHEST 2V INDICATIONS: fever TECHNIQUE: 2 views of the chest were acquired. COMPARISON: [facility], , XR CHEST 1V, 03/31/2020, 17:49. FINDINGS: Surgical changes and devices: Right chest port with the tip projecting in the upper SVC. Lungs and pleura: Lungs are clear. No pleural effusions or pneumothorax. Mediastinum: Mediastinal contours are normal. Heart size is normal. Bones and chest wall: No suspicious bony abnormalities. Soft tissues appear unremarkable. IMPRESSION: No acute disease. Dictated by: Vinicio Squires M.D. on 05/02/2020 at 22:15 Approved by: Vinicio Squires M.D. on 05/02/2020 at 22:16 [facility] Narrative Medical decision making narrative: Patient with fever and urinary complaints, otherwise at her baseline. She has a very reassuring exam and other labs are largely at her baseline. She has no signs of sepsis and is largely free of complaint. Patient received fluids, blood pressure up to the 110s. Antibiotics initiated here in the department return precautions discussed and questions answered to her apparent satisfaction. Discharge Plan Departure Patient Disposition: Home Clinical Impression: Acute UTI Instructions: DI for Urinary Tract Infection (UTI) Activity Restrictions/Additional Instructions: *You have been diagnosed with [urinary tract infection] *What to do: *Take medications as directed: Prescription sent to [facility] at your request * please contact your clinic at the [facility] later this morning for follow-up instructions *Return to ER if you should have any new, worsening or concerning symptoms, such as [chest pain, shortness of breath, passing out, persistent vomiting or other bothersome symptoms] Prescriptions: New cephalexin [Keflex] 500 mg capsule 500 mg PO BID Qty: 14 RF: 0 Referrals: Gabbi Azevedo PA-C [Primary Care Provider] -
[2020-05-02 22:17] LABS: RBC Urine None Seen (0-5/HPF)
[2020-05-02 22:34] LABS: Bacteria Urine Few (2-10); Culture Indicated Urine Specimen Cultured; Hyaline Casts Urine 1-5/LPF; Squamous Epithelial Cell Urine 0-1 /HPF (0-5/HPF); WBC Urine 5-10/HPF (0-5/HPF)
[2020-05-03] VITALS: BP 95/54; PULSE 70; RESP 20; O2SAT 95
[2020-05-03 00:07] VITALS: BP 102/58; PULSE 74; RESP 21; TEMP 37.6; O2SAT 96
[2020-05-03 00:30] VITALS: BP 112/57; PULSE 74; RESP 21; O2SAT 96
[2020-05-03 01:00] VITALS: BP 106/56; PULSE 74; RESP 18; O2SAT 97
[2020-05-03] MEDS: cephALEXin 250 MG PREPACK 1 BOTTLE MISC (01:00)
== END 2020-05-03 01:12 | disposition home or self-care (01) ==
PROVIDERS: Emergency Provider Emergency Medicine; PCP Physician Assistant Medical
DX: N39.0 Urinary tract infection, site not specified (principal); R50.9 Fever, unspecified; R39.15 Urgency of urination; C22.8 Malignant neoplasm of liver, primary, unspecified as to type
CPT/HCPCS: 36415; 71046; 80053; 81003; 81015; 83605; 83690; 83735; 85025; 85610; 87040; 87086; 96360; 96361; 99283; 99284